=== PATIENT | male | born 1985 | race Caucasian/White ===

== ENCOUNTER 2019-12-31 03:29 | Emergency (ER) | payer OTHER, SELFPAY ==
[2019-12-31] VITALS (7 sets, daily range): BP systolic 104–113; BP diastolic 70–78; PULSE 68–89; RESP 14–18; TEMP 36.9–37.3; O2SAT 98–99; BMI 22.1
[2019-12-31 04:26] LABS: Eosinophils Absolute Auto 0.1 X10*3/uL (0.0-0.4); Eosinophils Percent Auto 0.6 % (0-4); Mean Corpuscular Volume 65.4 fL (80-98); Monocytes Absolute Auto 0.9 X10*3/uL (0.1-1.2); SCAN SMEAR FLAG 1; WBC ABN SCTR 1
[2019-12-31 04:28] LABS: Basophils Absolute Auto 0.1 X10*3/uL (0.0-0.2); Basophils Percent Auto 0.7 % (0-2); Hematocrit 38.2 % (42-52); Hemoglobin 11.1 g/dl (14.0-18.0); Imm Gran Abs Auto 0.02 X10*3/uL (0.00-0.03); Imm Gran Pct Auto 0.2 % (0.0-0.4); Lymphocytes Absolute Auto 1.8 X10*3/uL (1.2-4.9); Lymphocytes Percent Auto 22.1 % (20-40); Mean Corpuscular HGB Conc 29.1 g/dl (31.0-36.0); Monocytes Percent Auto 10.3 % (2-11); Neutrophils Absolute Auto 5.5 X10*3/uL (2.0-8.3); Neutrophils Percent Auto 66.1 % (45-73); Platelet Count 328 X10*3/uL (160-400); Red Blood Count 5.84 X10*6/uL (4.60-5.80); Red Cell Distribution Width 19.8 % (11.0-16.0)
[2019-12-31 04:39] LABS: Amphetamine Screen Urine Not Detected (Not Detect); Barbiturates, Urine Not Detected (Not Detect); Benzodiazepines Screen Urine Not Detected (Not Detect); Cannabinoid Screen Urine POSITIVE (Not Detect); Opiate Screen Urine Not Detected (Not Detect); Phencyclidine Screen Urine Not Detected (Not Detect)
[2019-12-31 04:43] LABS: Ethanol < 10 mg/dL
[2019-12-31 04:44] LABS: MANUAL DIFF FLAG NO; PLT ABN DIST 1; WBC ABN SCTR FOR CBC 1; White Blood Count 8.3 X10*3/uL (4.8-10.8)
[2019-12-31 04:48] LABS: Alanine Aminotransferase 64 U/L (0-40); Albumin Level 5.6 g/dL (3.5-5.0); Alkaline Phosphatase 150 U/L (39-117); Anion Gap 17 (12-20); Aspartate Amino Transferase 38 U/L (5-37); Bilirubin Total 0.6 mg/dL (0.0-1.0); Blood Urea Nitrogen 23 mg/dL (9-16); Calcium 10.6 mg/dL (8.4-10.2); Carbon Dioxide 27 mmol/L (22-29); Chloride 99 mmol/L (96-108); Cocaine Screen Urine POSITIVE (Not Detect); Creatinine Clr Calc Pharmacy 94.4; Estimated Glomerular Filt Rate > 60; Glucose Random 87 mg/dL (60-115); Potassium 4.5 mmol/l (3.3-5.1); Sodium 138 mmol/L (135-145); Total Protein 9.6 g/dL (6.5-8.0)
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
--- NOTE | 2019-12-31 04:54 | PC.NURSE ---
patient is medically cleared at this time. fax to [facility]. plan to move to pod when room is available
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
[2019-12-31 05:06] LABS: Glucose Urine UA NEG (NEG); Leukocyte Esterase Urine NEG (NEG); Nitrite Urine NEG (NEG); PH 6.5 (5.0-8.0); Urine Blood TRACE (NEG); Urine Ketones 15 MG/DL (NEG); Urine Protein NEG (NEG-TRACE)
[2019-12-31 05:09] LABS: Appearance Urine CLEAR; Color Urine AMBER
[2019-12-31 05:20] LABS: Mucus Urine 1+ /LPF; RBC Urine 0-2 /HPF (0); Squamous Epithelial Cell Urine 1+ /LPF; WBC Urine 0-2 /HPF (0-4)
--- NOTE | 2019-12-31 05:40 | PC.NURSE ---
report given to karie in pod. no questions.
--- NOTE | 2019-12-31 11:10 | PC.NURSE ---
SEEN BY Estiven, AWAITING DISPO
--- NOTE | 2019-12-31 14:05 | PC.NURSE ---
AFTER SPEAKING WITH [facility] PLAN FOR RESPITE HOWEVER PT NOW STATES HE WANTS TO GO HOME, [facility] AWARE AND AT BEDSIDE AT THIS TIME
== END 2019-12-31 15:00 | disposition home or self-care (01) ==
PROVIDERS: Emergency Provider Student in an Organized Health Care Education/Training Program
DX: F33.1 Major depressive disorder, recurrent, moderate (principal); R45.851 Suicidal ideations; C16.9 Malignant neoplasm of stomach, unspecified; C78.7 Secondary malignant neoplasm of liver and intrahepatic bile duct; F14.90 Cocaine use, unspecified, uncomplicated; F17.200 Nicotine dependence, unspecified, uncomplicated; Z71.6 Tobacco abuse counseling
CPT/HCPCS: 36415; 80053; 80307; 80320; 81001; 85025; 99285

== ENCOUNTER 2020-05-29 14:27 | Outpatient (REF) | payer OTHER, SELFPAY | END 2020-05-29 14:28 | disposition home or self-care (01) | LOC: HO.LAB 14:27 | PROVIDERS: Visit Provider Internal Medicine | DX: Z20.822 Contact with and (suspected) exposure to COVID-19 (principal) | CPT/HCPCS: 36415; C9803; U0003; U0005 ==

== ENCOUNTER 2021-06-03 11:50 | Emergency (ER) | payer MEDICAID, SELFPAY ==
--- NOTE | ~2021-06-03 | CT_ITS ---
EXAMINATION: CT ABDOMEN AND PELVIS WITH CONTRAST CLINICAL INFORMATION: Abdominal pain. History of cancer of the liver COMPARISON: Previous CTA of the abdomen and pelvis May 2019 TECHNIQUE: Multidetector volumetric images were obtained from the superior aspect of the liver through the pubic symphysis following administration 85 mL of Omnipaque 350 intravenous contrast. Sagittal and coronal reformatted images were obtained on the technologist's workstation. Oral contrast: Yes This CT examination was performed using dose optimization techniques as appropriate, variously including the following: *Automated exposure control *Adjustment of mA and/or kV according to patient size (this includes techniques or standardized protocols for targeted exams where dose is matched to indication/reason for exam; i.e. extremities or head) *Use of iterative reconstruction technique DLP: 608 mGy-cm FINDINGS: LUNG BASES: The visualized lung bases are unremarkable. LIVER, GALLBLADDER, AND BILIARY TREE: The liver is enlarged. There are multiple liver lesions seen throughout both lobes of the liver. Some lesions appear low in attenuation. Several heterogeneous on both high and low attenuation. Largest lesion measures 5 cm in the lateral segment of the left lobe of the liver and 6 cm in the posterior segment of the right lobe of the liver. The gallbladder is normal. There is no biliary duct dilatation. The hepatic veins and portal veins are patent. There is no ascites. PANCREAS: Unremarkable. SPLEEN: The spleen is slightly enlarged measuring 14 cm in length. ADRENAL GLANDS: Unremarkable. KIDNEYS AND URETERS: The kidneys are normal in size, shape, and attenuation. No hydronephrosis, hydroureter, or calculi seen. There is a low-attenuation lesion in the upper pole right kidney probably representing a cyst. Kidneys are otherwise unremarkable. BLADDER: Unremarkable. GASTROINTESTINAL TRACT: There is wall thickening of the distal colon questionable for mild colitis. The small and large bowel are otherwise unremarkable. The appendix is unremarkable. The greater curvature of the stomach is abnormal appearing with focal area of wall thickening and question ulcerative mass. This area measures approximately 4 cm. There are small adjacent perigastric lymph nodes. ABDOMINAL WALL: No significant hernia is appreciated. LYMPH NODES: There are enlarged periportal lymph nodes. These appear low in attenuation questionable for necrosis. Largest lymph node measures 3.5 x 4.5 cm. VASCULAR: Unremarkable. PELVIC VISCERA: Unremarkable. OSSEOUS STRUCTURES: There is a 5 mm sclerotic lesion in the left femoral intertrochanteric region. This is similar to May 2019 CT scan and may represent a bone island. CT/CT abdomen pelvis w con IMPRESSION: Enlarged liver and innumerable liver lesions compatible with patient's history of liver cancer. No biliary duct dilatation. Enlarged periportal lymph nodes, some of which may be necrotic. Abnormal stomach with focal wall thickening and question ulcerated mass involving the greater curvature of the stomach and small adjacent perigastric lymph nodes. Enlarged spleen. No ascites. Mild wall thickening of the distal colon questionable for colitis. Fleischner guidelines were followed.
[2021-06-03 11:56] VITALS: BP 133/85; PULSE 113; RESP 18; TEMP 36.5; O2SAT 99; BMI 25.8
--- NOTE | 2021-06-03 12:22 | ED_ITS ---
HPI - Abdominal Pain General Chief Complaint: Abdominal Pain Stated Complaint: sharp abd pain Time Seen by Provider: 06/03/21 12:07 Source: patient Mode of arrival: ambulatory Limitations: no limitations History of Present Illness HPI narrative: 35-year-old male with history of stomach and liver cancer presents to emergency department 3 weeks after getting out of shelter. He states he was still getting treatment at [facility] for his liver and stomach cancer. Since he has been out he is not taking his cancer medications he has not talked to his cancer doctor main appointment. He states that yesterday called and told that he had abdominal pain. Patient has chronic abdominal pain all over his abdomen he states is worse with eating. He states he has had to have fluid drained from his belly 1 time in the past. Patient is a very poor historian and obviously concerning that he is not taking care of himself with his cancer. Recently out of shelter. Patient takes oxycodone every 6 hours and is continue taking that as well as he states his psych medications. MD elicited complaint: abdominal pain Related Data Home Medications Medication Instructions Recorded Confirmed acetaminophen 325 mg tablet 2 tab PO QID PRN 06/03/21 06/03/21 amlodipine 10 mg tablet 1 tab PO DAILY 06/03/21 06/03/21 hydroxyzine HCl 25 mg tablet 25 mg PO BID@0900,1200 06/03/21 06/03/21 hydroxyzine HCl 25 mg tablet 50 mg PO BEDTIME 06/03/21 06/03/21 omeprazole 40 mg capsule,delayed 1 cap PO DAILY@0630 06/03/21 06/03/21 release oxycodone 15 mg tablet 1 tab PO Q6H PRN 06/03/21 06/03/21 sennosides 8.6 mg-docusate sodium 2 tab PO BEDTIME PRN 06/03/21 06/03/21 50 mg tablet (Senexon-S) sertraline 50 mg tablet 1 tab PO DAILY 06/03/21 06/03/21 sunitinib 37.5 mg capsule 37.5 mg PO DAILY 06/03/21 trazodone 100 mg tablet 2 tab PO BEDTIME 06/03/21 06/03/21 Allergies Allergy/AdvReac Type Severity Reaction Status Date / Time No Known Allergies Allergy Unverified 12/13/19 15:46 [No Known Allergies*] Review of Systems Review of Systems Review of systems: General: Patient denies any fever chills recent illness or falls Musculoskeletal: Denies back pain or body aches or other injuries HEENT: denies headache, runny nose, ear pain Respiratory: denies shortness of breath, cough Cardiovascular: no chest pain or palpitations : denies dysuria, frequency Abdomen: no nausea vomiting generalized abdominal pain Extremities: no swelling, no pain Skin: no diaphoresis Yes all other systems are reviewed and are negative PMFSH Past Medical History Medical History Cancer of stomach Liver cancer Social History Social History Alcohol intake: never Patient Tobacco Use Status: Current everyday Tobacco user Smoked in Last 30 Days: Yes Use of substances other than those prescribed or required for medical reasons: Yes Substance Use Type: Marijuana Advance Directives: No Advance Directives Information Provided: No Physical Exam ED Vital Signs: Vital Signs - 24 hr 06/03/21 11:56 06/03/21 12:34 06/03/21 14:35 Temperature 97.7 F 98.2 F 98.1 F Pulse Rate 113 H 90 84 Respiratory Rate 18 17 13 Blood Pressure 133/85 109/74 94/62 Pulse Oximetry 99 97 95 06/03/21 14:38 Temperature 98.1 F Pulse Rate 78 Respiratory Rate 17 Blood Pressure 94/62 Pulse Oximetry BMI result Body Mass Index 25.8 General: Well-appearing well-nourished in no signs of distress HEENT: Normocephalic atraumatic Neck: No signs of JVD, no masses no tenderness or lymphadenopathy Cardiovascular: Regular rate and rhythm Respiratory: Clear to auscultation bilaterally Abdomen: Soft tender all over the abdomen with intermittent guarding no masses appears to have worse pain in the right upper quadrant. Extremities: Normal pedal pulses no signs of edema Skin: Dry warm no rashes Back: No tenderness full ROM Procedures Procedure Narrative Procedure Narrative: Bedside ultrasound performed to see if there is any ascites patient tolerated the procedure well was not tender in the right lower left upper and left lower quadrant but would flex his belly when I would try to scan his right upper quadrant I was unable to visualize his liver or gallbladder. MDM - Abdominal Pain MDM Narrative Medical decision making narrative: 35-year-old unfortunate male with liver and stomach cancer being treated at [facility]. Patient comes here for acute on chronic abdominal pain for which she takes oxycodone he states is worse with eating he denies any new or different pain than his normal. Bedside ultrasound did not show any ascites I do not use patient is having SBP on the patient for CT scan to rule out any acute intra- abdominal process this is likely a chronic nature and related to his cancer for which he is getting treatment I will give patient fluids morphine and droperidol since patient is on oxycodone I think the droperidol help mitigate his pain. I will check labs as well. 1507 CT shows multiple lesions within liver and stomach there was 1 ulcerative lesion within the stomach does not appear to be any sense perforation labs are unremarkable patient looks well heart rate has normalized I will discharge the patient home with heme Onc follow-up. We did find the patient's medications which he can mixing picker tender on his way home. Lab Data Result diagrams: 06/03/21 12:50 06/03/21 12:50 Labs: Lab Results 06/03/21 06/03/21 06/03/21 Range/Units 12:50 12:50 12:50 WBC 4.1 L (4.8-10.8) X10*3/uL RBC 4.24 L (4.60-5.80) X10*6/uL Hgb 9.9 L (14.0-18.0) g/dl Hct 32.6 L (42.0-52.0) % MCV 76.9 L (80.0-98.0) fL MCH 23.3 L (27.0-33.0) pg MCHC 30.4 L (31.0-36.0) g/dl RDW 21.4 H (11.0-16.0) % Plt Count 198 (160-400) X10*3/uL MPV 10.7 (9.4-12.4) fL Immature Gran % (Auto) 0.2 (0.0-0.4) % Neut % (Auto) 42.3 L (45-73) % Lymph % (Auto) 42.8 H (20-40) % [place] % (Auto) 13.0 H (2-11) % Eos % (Auto) 1.2 (0-4) % Baso % (Auto) 0.5 (0-2) % Lymph # (Auto) 1.7 (1.2-4.9) X10*3/uL [place] # (Auto) 0.5 (0.1-1.2) X10*3/uL Eos # (Auto) 0.1 (0.0-0.4) X10*3/uL Baso # (Auto) 0.0 (0.0-0.2) X10*3/uL Abs Immat Gran (auto) 0.01 (0.00-0.03) X10*3/uL Absolute Neuts (auto) 1.7 L (2.0-8.3) x10*3/uL Absolute Nucleated RBC 0.000 (0.0-0.012) X10*3/uL Nucleated RBC % (auto) 0.0 (0.0-0.2) /100WBC Sodium 136 (135-145) mmol/L Potassium 4.3 (3.3-5.1) mmol/L Chloride 102 (96-108) mmol/L Carbon Dioxide 24 (22-29) mmol/L Anion Gap 14 (12-20) BUN 15 (9-16) mg/dL Creatinine 0.66 (0.5-1.4) mg/dL Estim Creat Clear Calc 159.1 Estimated GFR > 60 Random Glucose 69 (60-115) mg/dL Calcium 9.7 D (8.4-10.2) mg/dL Total Bilirubin 0.7 (0.0-1.0) mg/dL Direct Bilirubin 0.3 (0.0-0.5) mg/dL AST 38 H (5-37) U/L ALT 49 H (0-40) U/L Alkaline Phosphatase 308 H D (39-117) U/L Total Protein 7.7 (6.5-8.0) g/dL Albumin 4.1 D (3.5-5.0) g/dL Lipase 102 H (8-78) U/L Urine Color Urine Appearance Urine pH (5.0-8.0) Ur Specific [place] (1.005-1.025) Urine Protein (NEG-TRACE) MG/DL Urine Glucose (UA) (NEG) MG/DL Urine Ketones (NEG) MG/DL Urine Blood (NEG) Urine Nitrite (NEG) Ur Leukocyte Esterase (NEG) Urine RBC (0) /HPF Urine WBC (0-4) /HPF Ur Squamous Epith Cells /LPF Urine Bacteria /LPF Urine Opiates Screen (Not Detect) Urine Fentanyl Screen (Not Detect) Ur Barbiturates Screen (Not Detect) Ur Phencyclidine Scrn (Not Detect) Ur Amphetamines Screen (Not Detect) U Benzodiazepines Scrn (Not Detect) Urine Cocaine Screen (Not Detect) U Marijuana (THC) Screen (Not Detect) Ethyl Alcohol < 10 mg/dL 06/03/21 06/03/21 Range/Units 14:30 14:30 WBC (4.8-10.8) X10*3/uL RBC (4.60-5.80) X10*6/uL Hgb (14.0-18.0) g/dl Hct (42.0-52.0) % MCV (80.0-98.0) fL MCH (27.0-33.0) pg MCHC (31.0-36.0) g/dl RDW (11.0-16.0) % Plt Count (160-400) X10*3/uL MPV (9.4-12.4) fL Immature Gran % (Auto) (0.0-0.4) % Neut % (Auto) (45-73) % Lymph % (Auto) (20-40) % [place] % (Auto) (2-11) % Eos % (Auto) (0-4) % Baso % (Auto) (0-2) % Lymph # (Auto) (1.2-4.9) X10*3/uL [place] # (Auto) (0.1-1.2) X10*3/uL Eos # (Auto) (0.0-0.4) X10*3/uL Baso # (Auto) (0.0-0.2) X10*3/uL Abs Immat Gran (auto) (0.00-0.03) X10*3/uL Absolute Neuts (auto) (2.0-8.3) x10*3/uL Absolute Nucleated RBC (0.0-0.012) X10*3/uL Nucleated RBC % (auto) (0.0-0.2) /100WBC Sodium (135-145) mmol/L Potassium (3.3-5.1) mmol/L Chloride (96-108) mmol/L Carbon Dioxide (22-29) mmol/L Anion Gap (12-20) BUN (9-16) mg/dL Creatinine (0.5-1.4) mg/dL Estim Creat Clear Calc Estimated GFR Random Glucose (60-115) mg/dL Calcium (8.4-10.2) mg/dL Total Bilirubin (0.0-1.0) mg/dL Direct Bilirubin (0.0-0.5) mg/dL AST (5-37) U/L ALT (0-40) U/L Alkaline Phosphatase (39-117) U/L Total Protein (6.5-8.0) g/dL Albumin (3.5-5.0) g/dL Lipase (8-78) U/L Urine Color YELLOW Urine Appearance CLEAR Urine pH 5.5 (5.0-8.0) Ur Specific [place] 1.020 (1.005-1.025) Urine Protein 1+ H (NEG-TRACE) MG/DL Urine Glucose (UA) NEG (NEG) MG/DL Urine Ketones NEG (NEG) MG/DL Urine Blood NEG (NEG) Urine Nitrite NEG (NEG) Ur Leukocyte Esterase NEG (NEG) Urine RBC 0-2 (0) /HPF Urine WBC 0-2 (0-4) /HPF Ur Squamous Epith Cells NONE /LPF Urine Bacteria NONE /LPF Urine Opiates Screen POSITIVE H (Not Detect) Urine Fentanyl Screen Not Detected (Not Detect) Ur Barbiturates Screen Not Detected (Not Detect) Ur Phencyclidine Scrn Not Detected (Not Detect) Ur Amphetamines Screen Not Detected (Not Detect) U Benzodiazepines Scrn Not Detected (Not Detect) Urine Cocaine Screen Not Detected (Not Detect) U Marijuana (THC) Screen POSITIVE H (Not Detect) Ethyl Alcohol mg/dL Discharge Plan Discharge Clinical Impression: Gastric cancer, Cancer of liver Patient Disposition: Home, Self-Care Instructions: Liver Cancer (DC), Stomach Cancer (DC) Additional Instructions: Please call follow-up your doctor if you have any other concerns please not hesitate to come back to the emergency department. Prescriptions: No Action acetaminophen 325 mg tablet 2 tab PO QID PRN (Reason: pain) 0RF sennosides-docusate sodium [Senexon-S] 8.6-50 mg tablet 2 tab PO BEDTIME PRN (Reason: constipation) 0RF omeprazole 40 mg capsule,delayed release(DR/EC) 1 cap PO DAILY@0630 0RF oxycodone 15 mg tablet 1 tab PO Q6H PRN (Reason: pain) 0RF trazodone 100 mg tablet 2 tab PO BEDTIME 0RF amlodipine 10 mg tablet 1 tab PO DAILY 0RF hydroxyzine HCl 25 mg tablet 25 mg PO BID@0900,1200 0RF hydroxyzine HCl 25 mg tablet 50 mg PO BEDTIME 0RF sertraline 50 mg tablet 1 tab PO DAILY 0RF sunitinib 37.5 mg capsule 37.5 mg PO DAILY 0RF
[2021-06-03 12:34] VITALS: BP 109/74; PULSE 90; RESP 17; TEMP 36.8; O2SAT 97
[2021-06-03 12:54] LABS: MANUAL DIFF FLAG NO
[2021-06-03 12:56] LABS: Basophils Percent Auto 0.5 % (0-2); Eosinophils Absolute Auto 0.1 X10*3/uL (0.0-0.4); Eosinophils Percent Auto 1.2 % (0-4); Hematocrit 32.6 % (42.0-52.0); Hemoglobin 9.9 g/dl (14.0-18.0); Imm Gran Abs Auto 0.01 X10*3/uL (0.00-0.03); Imm Gran Pct Auto 0.2 % (0.0-0.4); Lymphocytes Absolute Auto 1.7 X10*3/uL (1.2-4.9); Lymphocytes Percent Auto 42.8 % (20-40); Mean Corpuscular HGB Conc 30.4 g/dl (31.0-36.0); Mean Corpuscular Hemoglobin 23.3 pg (27.0-33.0); Mean Corpuscular Volume 76.9 fL (80.0-98.0); Mean Platelet Volume 10.7 fL (9.4-12.4); Monocytes Absolute Auto 0.5 X10*3/uL (0.1-1.2); Neutrophils Absolute Auto 1.7 x10*3/uL (2.0-8.3); Neutrophils Percent Auto 42.3 % (45-73); Platelet Count 198 X10*3/uL (160-400); Red Blood Count 4.24 X10*6/uL (4.60-5.80); Red Cell Distribution Width 21.4 % (11.0-16.0); White Blood Count 4.1 X10*3/uL (4.8-10.8)
[2021-06-03] MEDS: 0.9 % Sodium Chloride 1,000 ML 999 ML IV (12:59)
[2021-06-03] MEDS: Morphine Sulfate 4 MG/ML CARTRIDGE IVPUSH (13:01)
[2021-06-03 13:12] LABS: Alanine Aminotransferase 49 U/L (0-40); Albumin Level 4.1 g/dL (3.5-5.0); Alkaline Phosphatase 308 U/L (39-117); Anion Gap 14 (12-20); Aspartate Amino Transferase 38 U/L (5-37); Bilirubin Direct 0.3 mg/dL (0.0-0.5); Bilirubin Total 0.7 mg/dL (0.0-1.0); Blood Urea Nitrogen 15 mg/dL (9-16); Calcium 9.7 mg/dL (8.4-10.2); Carbon Dioxide 24 mmol/L (22-29); Chloride 102 mmol/L (96-108); Creatinine Clr Calc Pharmacy 159.1; Estimated Glomerular Filt Rate > 60; Glucose Random 69 mg/dL (60-115); Lipase 102 U/L (8-78); Potassium 4.3 mmol/L (3.3-5.1); Sodium 136 mmol/L (135-145); Total Protein 7.7 g/dL (6.5-8.0)
--- NOTE | 2021-06-03 13:25 | PHA.MEDREC ---
Pharmacy Consult ? Medication Reconciliation Pharmacy has completed the medication reconciliation. Patient has no been able to get his Sutinib because he was not sure where it was shipped to. Confirmed with [facility] pharmacy that [facility] drop off the package at [facility] [address] [facility] in [place]. Patient reports taking clonidine at night, but it has not been picked up from his pharmacy for 2 years. There is a script on hold at [facility] for Clonidine 0.1 mg BID last filled in 2019. Marlee Liz, DiegoD
[2021-06-03] MEDS: iohexoL 350 MG/ML 100 ML INFUS..BTL IV (14:00)
[2021-06-03 14:15] LABS: Ethanol < 10 mg/dL
[2021-06-03 14:35] VITALS: BP 94/62; PULSE 84; RESP 13; TEMP 36.7; O2SAT 95
[2021-06-03 14:36] LABS: Appearance Urine CLEAR; Color Urine YELLOW; Glucose Urine UA NEG (NEG); Leukocyte Esterase Urine NEG (NEG); Nitrite Urine NEG (NEG); PH 5.5 (5.0-8.0); UACC Culture Trigger NO; Urine Blood NEG (NEG); Urine Ketones NEG (NEG); Urine Protein 1+ MG/DL (NEG-TRACE)
[2021-06-03 14:38] VITALS: BP 94/62; PULSE 78; RESP 17; TEMP 36.7
[2021-06-03 14:43] LABS: WBC Urine 0-2 /HPF (0-4)
[2021-06-03 14:44] LABS: RBC Urine 0-2 /HPF (0)
[2021-06-03 14:54] LABS: Amphetamine Screen Urine Not Detected (Not Detect); Barbiturates, Urine Not Detected (Not Detect); Benzodiazepines Screen Urine Not Detected (Not Detect); Cannabinoid Screen Urine POSITIVE (Not Detect); Cocaine Screen Urine Not Detected (Not Detect); Fentanyl, urine Not Detected (Not Detect); Opiate Screen Urine POSITIVE (Not Detect); Phencyclidine Screen Urine Not Detected (Not Detect)
== END 2021-06-03 15:28 | disposition home or self-care (01) ==
PROVIDERS: Emergency Provider Student in an Organized Health Care Education/Training Program
DX: C16.9 Malignant neoplasm of stomach, unspecified (principal); C78.7 Secondary malignant neoplasm of liver and intrahepatic bile duct; Z79.899 Other long term (current) drug therapy; F17.200 Nicotine dependence, unspecified, uncomplicated; Z71.6 Tobacco abuse counseling
CPT/HCPCS: 36415; 74177; 80048; 80076; 80307; 81001; 82077; 83690; 85025; 96361; 96374; 96375; 99284; J1790; J2270; Q9967

== ENCOUNTER 2022-10-06 11:07 | Emergency (ER) | payer MEDICAID, SELFPAY ==
--- NOTE | ~2022-10-06 | CT_ITS ---
EXAMINATION: CT ABDOMEN AND PELVIS WITH CONTRAST CLINICAL INFORMATION: Left upper quadrant tenderness. COMPARISON: 06/03/2021 TECHNIQUE: Multidetector volumetric images were obtained from the superior aspect of the liver through the pubic symphysis following administration 85 mL of Omnipaque 350 intravenous contrast. Sagittal and coronal reformatted images were obtained on the technologist's workstation. Oral contrast: No This CT examination was performed using dose optimization techniques as appropriate, variously including the following: *Automated exposure control *Adjustment of mA and/or kV according to patient size (this includes techniques or standardized protocols for targeted exams where dose is matched to indication/reason for exam; i.e. extremities or head) *Use of iterative reconstruction technique DLP: 465 mGy-cm FINDINGS: LUNG BASES: Atelectasis versus scarring in the lower lobes. LIVER, GALLBLADDER, AND BILIARY TREE: The liver is enlarged and measures 34.8 cm in sagittal dimension. The hepatic parenchyma is replaced with innumerable ill-defined hypodensities of varying size and complexity. These masses have progressed in both size and number compared to the prior study. A lesion in the caudate lobe measures 6.8 x 7.8 cm. Many of the lesions exhibit necrotic features. Hemorrhagic component cannot be excluded No biliary ductal dilatation. Hepatic and portal veins are attenuated and splayed by the masses however remain grossly patent. Gallbladder wall thickening. PANCREAS: No ductal dilatation. SPLEEN: Enlarged. Measures 16.2 cm in sagittal dimension. ADRENAL GLANDS: No adrenal mass. KIDNEYS AND URETERS: The kidneys are symmetric in size and enhancement. Upper pole right renal cyst. Indeterminate left peripelvic hypodensity. No hydronephrosis or hydroureter. BLADDER: Unremarkable. GASTROINTESTINAL TRACT: Irregular soft tissue mass centered at the gastric body measuring 4.1 x 4.7 x 4.8 cm with intraluminal and extraluminal components. There is an adjacent left upper quadrant mass measuring 2.3 x 1.7 cm on image 48 of series 3. No small bowel obstruction. ABDOMINAL WALL: No significant hernia is appreciated. LYMPH NODES: There is extensive conglomerate periportal lymphadenopathy. The largest lymph node mass measures 4.5 x 5.0 cm. VASCULAR: No abdominal aortic aneurysm. PELVIC VISCERA: The prostate gland and seminal vesicles are within normal limits. Small ascites in the abdomen and pelvis. OSSEOUS STRUCTURES: No destructive bone lesions. CT/CT abdomen pelvis w IV con IMPRESSION: Irregular soft tissue mass centered at the gastric body with both intraluminal and extraluminal components measuring 4.1 x 4.7 x 4.8 cm. Diagnostic considerations include gastrointestinal stromal tumor and gastric carcinoma. Extensive hepatic metastatic disease and hepatic enlargement progressed from prior study with marked progressive periportal lymphadenopathy. Many of the hepatic lesions demonstrate central necrosis. Hemorrhagic component cannot be excluded. Splenomegaly. Small ascites. Findings were reviewed and discussed with LOUISA Olivares at 2:08 PM on 10/06/2022.
--- NOTE | 2022-10-06 11:17 | ED.GENADULT ---
HPI - General Adult General Chief complaint: Abdominal Pain Stated complaint: runny nose, lower abd pain Time Seen by Provider: 10/06/22 12:15 Source: patient and old records reviewed Mode of arrival: ambulatory Limitations: no limitations History of Present Illness HPI narrative: 36-year-old male with history of metastatic GIST with extensive hepatic involvement, dx 2019, history of spontaneous subcapsular hematoma s/p embolization of the left hepatic artery in the past, chronic pain on chronic opiates, history of medication noncompliance, cocaine use and ETOH abuse, history of anemia requiring multiple transfusions, schizophrenia, bipolar disorder, who presents to the ER for evaluation of 3 weeks of worsening left upper quadrant pain. He states the pain has been worse with movement and coughing. He has had significant decrease in appetite and not able to eat because of the pain. He is having normal BMs. He is nauseated but not vomiting. He reports chills, runny nose and sore throat as well. He states he has gone to [facility] ER twice for the pain recently but ended up leaving due to long wait times. He is being treated at [facility] for his malignancies. He is s/p radiation and chemotherapy. He was started on a new oral weekly chemotherapy agent by his Oncologist yesterday. MD complaint: abdominal pain Onset (ago): week(s) Location: abdomen Radiation: non-radiation Severity: severe Severity scale (1-10): 10 Quality: stabbing Pain Consistency: constant Relieving factors: none Exacerbating factors: eating and movement Associated symptoms: cough, loss of appetite, malaise, nausea/vomiting, weakness and other (runny nose, sore throat) Treatments prior to arrival: none Related Data Home Medications Medication Instructions Recorded Confirmed acetaminophen 325 mg tablet 2 tab PO QID PRN pain 06/03/21 06/03/21 amlodipine 10 mg tablet 1 tab PO DAILY 06/03/21 06/03/21 hydroxyzine HCl 25 mg tablet 25 mg PO BID@0900,1200 06/03/21 06/03/21 hydroxyzine HCl 25 mg tablet 50 mg PO BEDTIME 06/03/21 06/03/21 omeprazole 40 mg capsule,delayed 1 cap PO DAILY@0630 06/03/21 06/03/21 release oxycodone 15 mg tablet 1 tab PO Q6H PRN pain 06/03/21 06/03/21 sennosides 8.6 mg-docusate sodium 2 tab PO BEDTIME PRN constipation 06/03/21 06/03/21 50 mg tablet (Senexon-S) sertraline 50 mg tablet 1 tab PO DAILY 06/03/21 06/03/21 sunitinib malate 37.5 mg capsule 37.5 mg PO DAILY 06/03/21 trazodone 100 mg tablet 2 tab PO BEDTIME 06/03/21 06/03/21 Allergies Allergy/AdvReac Type Severity Reaction Status Date / Time No Known Allergies Allergy Unverified 10/06/22 11:19 [No Known Allergies*] Review of Systems Review of Systems: Yes all other systems are reviewed and are negative [facility] Past Medical History Medical History Cancer of stomach Liver cancer Social History Social History Alcohol intake: never Patient Tobacco Use Status: Current everyday Tobacco user Substance Use Type: Marijuana Advance Directives: No Physical Exam ED Vital Signs: Vital Signs - 24 hr 10/06/22 11:20 10/06/22 13:24 10/06/22 14:53 Temperature 98.2 F 98.2 F 99.2 F Pulse Rate 113 H 100 100 Respiratory Rate 20 16 20 Blood Pressure 148/99 H 121/86 126/86 Pulse Oximetry 96 96 94 Oxygen Delivery Method Room Air Room Air 10/06/22 15:01 Temperature Pulse Rate Respiratory Rate 19 Blood Pressure Pulse Oximetry Oxygen Delivery Method BMI result Body Mass Index 22.1 Appearance: Alert. Oriented X3. appears uncomfortable, malnourished appearing Head: normocephalic, atraumatic. Eyes: Pupils equal, round and reactive to light. mild scleral icterus ENT: Pharynx normal. No tonsillar swelling or exudate. Neck: Normal inspection. Neck supple. CVS: Normal heart rate and rhythm. Pulses normal. Respiratory: No respiratory distress. Breath sounds normal. Abdomen: Round, rigid, diffusely tender to the left side of the abdomen with guarding and rebound tenderness, active +BS x4 Skin: Skin warm and dry. Normal skin color. Normal skin turgor. No rashes. Extremities: No lower extremity edema. No joint swelling. Neuro/psych: Oriented X 3. No motor deficit. No sensory deficit. CN II-XII intact. Normal speech and cognition. Course Course Course Narrative: This is an RME: Additional HPI, ROS, PE not included below will be deferred to primary provider. Patient is a 36-year-old male with history of stomach and liver cancer presenting to the emergency department with abdominal pain, on left side of abdomen, worse with cough for 3 weeks. Also complains of headache, nasal congestion, sore throat. Currently receiving cancer treatment through [facility]. States he started a new oral chemo yesterday. Reevaluation(s) Reevaluation #1: Case discussed with radiologist. Significant increase in his metastatic liver lesions with fluid component, consistent with necrosis, possible hemorrhagic although no extravasation was seen. H&H is stable. BP is stable. Call put out to the patient's oncologist at [facility] for recommendations. Time: 14:25 Reevaluation #2: Spoke with patient's Oncologist Dr. Higuera. recommending pain control and close monitoring. Per Dr. Higuera he is not appropriate for hospice. patient is a full code and would like everything done. Spoke with hospitalist about admission to the hospital here. she came and evaluated the patient at the bedside. reviewed CT images with her. concern for lack of IR and surgical capabilities at this facility if he were to perforate or decompensate. Dr. Sharif (ED MD) also evaluated the patient at the bedside and agrees to transfer the patient to tertiary center for more resources. [facility] closed to transfers at this time. [facility] accepts Time: 14:36 Medications Administered Discontinued Medications Generic Name Dose Route Start Last Admin Trade Name Freq PRN Reason Stop Dose Admin Hydromorphone HCl 1 mg 10/06/22 12:29 10/06/22 12:43 Hydromorphone Hcl 1 Mg/Ml Syringe IVPUSH 10/06/22 12:30 1 mg ONCE ONE Administration Protocol Hydromorphone HCl 1 mg 10/06/22 14:25 10/06/22 15:01 Hydromorphone Hcl 1 Mg/Ml Syringe IVPUSH 10/06/22 14:26 1 mg ONCE ONE Administration Protocol Sodium Chloride 1,000 mls @ 999 mls/hr 10/06/22 12:30 10/06/22 14:43 Ns IV 10/06/22 13:30 Infused .Q1H1M NARDA Infusion Piperacillin Sod/Tazobactam 50 mls @ 100 mls/hr 10/06/22 12:43 10/06/22 14:43 Sod 3.375 gm/ Sodium Chloride IV 10/06/22 13:12 Infused ONCE ONE Infusion Iohexol 85 ml 10/06/22 13:05 10/06/22 13:05 Iohexol 350 Mg/Ml 100 Ml Infus..Btl IV 10/06/22 13:06 85 ml ONCE ONE Administration Medical Decision Making Medical Decision Making MDM Narrative: 36 yo male with history of gastric and liver cancers s/p chemo and radiation who presents to the ER with left sided abdominal pain for the last 3 weeks. On exam he is tachycardic, appears very uncomfortable. His abdomen is rigid. Concern for perforation. He has history of CT scan showing an ulcerating mass 1 year ago. Tachycardic on arrival due to pain. No fevers. CT scan of his abdomen was performed showing extensive hepatic metastatic disease and hepatomegaly, w/ central necrosis but cannot rule out hemorrhagic component. spoke with radiologist as well as patient's oncologist. he is hemodynamically stable however remains in significant pain. abdomen remains rigid. unable to move or breath comfortably. patient evaluated by ED attending and hospitalist the bedside - given his exam, age, goals of care and concern for clincical decompensation it would be best for the patient to be transferred to a higher level of care to have access to emergent surigical and IR specialists. patient and family updated on plan of care. accepted to [facility]. Differential Diagnosis Differential Diagnoses: The differential diagnosis associated with the presentation includes acute surgical abdomen, Worsening metastatic disease, perforated ulcer, hemorrhagic metastatic lesions, liver abscesses Admission/Observation Consideration of admission/observation: Escalation of care including admission/observation considered pain control, monitoring H/H and serial abd exams Consult Healthcare Provider Management of the patient was discussed with: Hospitalist and Manager [facility] Oncology at [facility] Lab Data [facility] Lab Attestation statement: I reviewed the patient's lab results. Stable anemia and leukopenia, acute on chronic transaminitis and hyperbilirubinemia 10/06/22 11:59 10/06/22 11:46 Labs: Lab Results 10/06/22 10/06/22 10/06/22 Range/Units 11:45 11:45 11:45 WBC (4.8-10.8) X10*3/uL RBC (4.60-5.80) X10*6/uL Hgb (14.0-18.0) g/dl Hct (42.0-52.0) % MCV (80.0-98.0) fL MCH (27.0-33.0) pg MCHC (31.0-36.0) g/dl RDW (11.0-16.0) % Plt Count (160-400) X10*3/uL MPV (9.4-12.4) fL Immature Gran % (Auto) (0.0-0.4) % Neut % (Auto) (45-73) % Lymph % (Auto) (20-40) % [place] % (Auto) (2-11) % Eos % (Auto) (0-4) % Baso % (Auto) (0-2) % Lymph # (Auto) (1.2-4.9) X10*3/uL [place] # (Auto) (0.1-1.2) X10*3/uL Eos # (Auto) (0.0-0.4) X10*3/uL Baso # (Auto) (0.0-0.2) X10*3/uL Abs Immat Gran (auto) (0.00-0.03) X10*3/uL Absolute Neuts (auto) (2.0-8.3) x10*3/uL Absolute Nucleated RBC (0.0-0.012) X10*3/uL Nucleated RBC % (auto) (0.0-0.2) /100WBC PT (10.0-13.1) SEC INR (0.9-1.1) Sodium (135-145) mmol/L Potassium (3.3-5.1) mmol/L Chloride (96-108) mmol/L Carbon Dioxide (22-29) mmol/L Anion Gap (12-20) BUN (9-16) mg/dL Creatinine (0.5-1.4) mg/dL Estim Creat Clear Calc Estimated GFR Random Glucose (60-115) mg/dL Lactic Acid 2.5 H* (0.5-2.0) mmol/L Lactic Acid F/U @ 2Hr (0.5-2.0) mmol/L Calcium (8.4-10.2) mg/dL Total Bilirubin (0.0-1.0) mg/dL AST (5-37) U/L ALT (0-40) U/L Alkaline Phosphatase (39-117) U/L Total Protein (6.5-8.0) g/dL Albumin (3.5-5.0) g/dL Influenza Type A (PCR) NEGATIVE (Negative) Influenza Type B (PCR) NEGATIVE (Negative) RSV RNA Qual (PCR) NEGATIVE (Negative) SARS-CoV-2 RNA (RT-PCR) NEGATIVE (Negative) S. pyogenes GrpA STEFAN Negative (Negative) 10/06/22 10/06/22 10/06/22 Range/Units 11:46 11:46 11:59 WBC 3.7 L (4.8-10.8) X10*3/uL RBC 3.98 L (4.60-5.80) X10*6/uL Hgb 10.8 L (14.0-18.0) g/dl Hct 34.6 L (42.0-52.0) % MCV 86.9 (80.0-98.0) fL MCH 27.1 (27.0-33.0) pg MCHC 31.2 (31.0-36.0) g/dl RDW 20.0 H (11.0-16.0) % Plt Count 180 (160-400) X10*3/uL MPV 11.0 (9.4-12.4) fL Immature Gran % (Auto) 0.3 (0.0-0.4) % Neut % (Auto) 70.8 (45-73) % Lymph % (Auto) 16.8 L (20-40) % [place] % (Auto) 10.8 (2-11) % Eos % (Auto) 0.8 (0-4) % Baso % (Auto) 0.5 (0-2) % Lymph # (Auto) 0.6 L (1.2-4.9) X10*3/uL [place] # (Auto) 0.4 (0.1-1.2) X10*3/uL Eos # (Auto) 0.0 (0.0-0.4) X10*3/uL Baso # (Auto) 0.0 (0.0-0.2) X10*3/uL Abs Immat Gran (auto) 0.01 (0.00-0.03) X10*3/uL Absolute Neuts (auto) 2.6 (2.0-8.3) x10*3/uL Absolute Nucleated RBC 0.000 (0.0-0.012) X10*3/uL Nucleated RBC % (auto) 0.0 (0.0-0.2) /100WBC PT 12.5 (10.0-13.1) SEC INR 1.1 (0.9-1.1) Sodium 134 L (135-145) mmol/L Potassium 4.4 (3.3-5.1) mmol/L Chloride 94 L (96-108) mmol/L Carbon Dioxide 23 (22-29) mmol/L Anion Gap 21 H (12-20) BUN 15 (9-16) mg/dL Creatinine 0.72 (0.5-1.4) mg/dL Estim Creat Clear Calc 139.1 Estimated GFR > 60 Random Glucose 87 (60-115) mg/dL Lactic Acid (0.5-2.0) mmol/L Lactic Acid F/U @ 2Hr (0.5-2.0) mmol/L Calcium 11.0 H D (8.4-10.2) mg/dL Total Bilirubin 3.6 H (0.0-1.0) mg/dL AST 76 H (5-37) U/L ALT 75 H (0-40) U/L Alkaline Phosphatase 873 H (39-117) U/L Total Protein 9.2 H (6.5-8.0) g/dL Albumin 4.5 (3.5-5.0) g/dL Influenza Type A (PCR) (Negative) Influenza Type B (PCR) (Negative) RSV RNA Qual (PCR) (Negative) SARS-CoV-2 RNA (RT-PCR) (Negative) S. pyogenes GrpA STEFAN (Negative) 10/06/22 Range/Units 14:38 WBC (4.8-10.8) X10*3/uL RBC (4.60-5.80) X10*6/uL Hgb (14.0-18.0) g/dl Hct (42.0-52.0) % MCV (80.0-98.0) fL MCH (27.0-33.0) pg MCHC (31.0-36.0) g/dl RDW (11.0-16.0) % Plt Count (160-400) X10*3/uL MPV (9.4-12.4) fL Immature Gran % (Auto) (0.0-0.4) % Neut % (Auto) (45-73) % Lymph % (Auto) (20-40) % [place] % (Auto) (2-11) % Eos % (Auto) (0-4) % Baso % (Auto) (0-2) % Lymph # (Auto) (1.2-4.9) X10*3/uL [place] # (Auto) (0.1-1.2) X10*3/uL Eos # (Auto) (0.0-0.4) X10*3/uL Baso # (Auto) (0.0-0.2) X10*3/uL Abs Immat Gran (auto) (0.00-0.03) X10*3/uL Absolute Neuts (auto) (2.0-8.3) x10*3/uL Absolute Nucleated RBC (0.0-0.012) X10*3/uL Nucleated RBC % (auto) (0.0-0.2) /100WBC PT (10.0-13.1) SEC INR (0.9-1.1) Sodium (135-145) mmol/L Potassium (3.3-5.1) mmol/L Chloride (96-108) mmol/L Carbon Dioxide (22-29) mmol/L Anion Gap (12-20) BUN (9-16) mg/dL Creatinine (0.5-1.4) mg/dL Estim Creat Clear Calc Estimated GFR Random Glucose (60-115) mg/dL Lactic Acid (0.5-2.0) mmol/L Lactic Acid F/U @ 2Hr 2.2 H* (0.5-2.0) mmol/L Calcium (8.4-10.2) mg/dL Total Bilirubin (0.0-1.0) mg/dL AST (5-37) U/L ALT (0-40) U/L Alkaline Phosphatase (39-117) U/L Total Protein (6.5-8.0) g/dL Albumin (3.5-5.0) g/dL Influenza Type A (PCR) (Negative) Influenza Type B (PCR) (Negative) RSV RNA Qual (PCR) (Negative) SARS-CoV-2 RNA (RT-PCR) (Negative) S. pyogenes GrpA STEFAN (Negative) Independent Interpretation I performed an independent interpretation of an: CT Scan Interpretation: ct scan reviewed - impressive hepatomegaly w/ metastatic lesions, ?bleeding. splenomegaly, no free air, agree w/ radiology read Radiology Impression Discussion of test interpretation with radiology: I discussed test interpretation with the radiologist and I have reviewed the radiologist's reading. Radiologist Impression: CT/CT abdomen pelvis w IV con IMPRESSION: Irregular soft tissue mass centered at the gastric body with both intraluminal and extraluminal components measuring 4.1 x 4.7 x 4.8 cm. Diagnostic considerations include gastrointestinal stromal tumor and gastric carcinoma. ? Extensive hepatic metastatic disease and hepatic enlargement progressed from prior study with marked progressive periportal lymphadenopathy. Many of the hepatic lesions demonstrate central necrosis. Hemorrhagic component cannot be excluded. ? Splenomegaly. ? Small ascites. Independent Historian Clinical information obtained from an independent historian. History obtained from or confirmed by: Other (oncologist at [facility] Dr. Higuera) External Record Review External record reviewed: Outpatient record, Prior outpatient labs and Prior outpatient radiology Prescription Management I considered prescription management with: Pain Medication and Antibiotic Chronic Conditions Patient?s care impacted by: Other (gastric and liver cancers) Social Determinants Patient?s care significantly limited by Social Determinants of Health including: Other Social Determinant of Health (recently out of [place] [facility], polysubstance abuse) Critical Care Time Critical Care Time Critical Care Time: Yes Total Critical Care Time: 65 Attestation: I have personally provided critical care time exclusive of time spent on separately billable procedures. Time includes review of lab data, radiology results, discussion with consultants, and monitoring for potential decompensation. Intervention performed as documented. Discharge Plan Discharge Clinical Impression: Metastatic cancer, Intractable abdominal pain, Abdominal rigidity Patient Disposition: [facility] Transfer Details: [facility] Prescriptions: No Action acetaminophen 325 mg tablet 2 tab PO QID PRN (Reason: pain) sennosides-docusate sodium [Senexon-S] 8.6-50 mg tablet 2 tab PO BEDTIME PRN (Reason: constipation) omeprazole 40 mg capsule,delayed release(DR/EC) 1 cap PO DAILY@0630 oxycodone 15 mg tablet 1 tab PO Q6H PRN (Reason: pain) trazodone 100 mg tablet 2 tab PO BEDTIME amlodipine 10 mg tablet 1 tab PO DAILY hydroxyzine HCl 25 mg tablet 25 mg PO BID@0900,1200 hydroxyzine HCl 25 mg tablet 50 mg PO BEDTIME sertraline 50 mg tablet 1 tab PO DAILY sunitinib malate 37.5 mg capsule 37.5 mg PO DAILY
[2022-10-06 11:20] VITALS: BP 148/99; PULSE 113; RESP 20; TEMP 36.8; O2SAT 96; BMI 22.1
[2022-10-06 12:11] LABS: INTERNATIONAL NORM RATIO 1.1 (0.9-1.1); Prothrombin Time 12.5 SEC (10.0-13.1)
[2022-10-06 12:11] LABS: IDNOW Serial# 08D9AD1C
[2022-10-06 12:11] LABS: MANUAL DIFF FLAG NO
[2022-10-06 12:12] LABS: Basophils Percent Auto 0.5 % (0-2); Eosinophils Percent Auto 0.8 % (0-4); Hematocrit 34.6 % (42.0-52.0); Hemoglobin 10.8 g/dl (14.0-18.0); Imm Gran Abs Auto 0.01 X10*3/uL (0.00-0.03); Imm Gran Pct Auto 0.3 % (0.0-0.4); Lymphocytes Absolute Auto 0.6 X10*3/uL (1.2-4.9); Lymphocytes Percent Auto 16.8 % (20-40); Mean Corpuscular HGB Conc 31.2 g/dl (31.0-36.0); Mean Corpuscular Hemoglobin 27.1 pg (27.0-33.0); Mean Corpuscular Volume 86.9 fL (80.0-98.0); Monocytes Absolute Auto 0.4 X10*3/uL (0.1-1.2); Monocytes Percent Auto 10.8 % (2-11); Neutrophils Absolute Auto 2.6 x10*3/uL (2.0-8.3); Neutrophils Percent Auto 70.8 % (45-73); Platelet Count 180 X10*3/uL (160-400); Red Blood Count 3.98 X10*6/uL (4.60-5.80); White Blood Count 3.7 X10*3/uL (4.8-10.8)
[2022-10-06 12:12] LABS: Strep A Nucleic Acid Negative (Negative)
[2022-10-06 12:17] LABS: Lactic Acid 2.5 mmol/L (0.5-2.0)
[2022-10-06 12:22] LABS: Alanine Aminotransferase 75 U/L (0-40); Albumin Level 4.5 g/dL (3.5-5.0); Alkaline Phosphatase 873 U/L (39-117); Anion Gap 21 (12-20); Aspartate Amino Transferase 76 U/L (5-37); Bilirubin Total 3.6 mg/dL (0.0-1.0); Blood Urea Nitrogen 15 mg/dL (9-16); Carbon Dioxide 23 mmol/L (22-29); Chloride 94 mmol/L (96-108); Creatinine Clr Calc Pharmacy 139.1; Estimated Glomerular Filt Rate > 60; Glucose Random 87 mg/dL (60-115); Potassium 4.4 mmol/L (3.3-5.1); Sodium 134 mmol/L (135-145); Total Protein 9.2 g/dL (6.5-8.0)
[2022-10-06 12:43] LABS: Influenza A PCR NEGATIVE (Negative); Influenza B PCR NEGATIVE (Negative); Resp Syncy Virus RNA Qual PCR NEGATIVE (Negative); SARS COV2 PCR INHOUSE NEGATIVE (Negative)
[2022-10-06] MEDS: 0.9 % Sodium Chloride 1,000 ML 999 ML IV (12:43)
[2022-10-06] MEDS: HYDROmorphone HCl 1 MG/ML SYRINGE IVPUSH ×2 (12:43→15:01)
[2022-10-06] MEDS: Piperacillin Sodium/Tazobactam 3.375 GM in 0.9 % Sodium Chloride 50 ML IV (13:01)
[2022-10-06] MEDS: iohexoL 350 MG/ML 100 ML INFUS..BTL 85 ML IV (13:05)
[2022-10-06 13:24] VITALS: BP 121/86; PULSE 100; RESP 16; TEMP 36.8; O2SAT 96
[2022-10-06 14:02] LABS: Reflex Lactate? Lactic Acid Added
[2022-10-06 14:53] VITALS: BP 126/86; PULSE 100; RESP 20; TEMP 37.3; O2SAT 94
[2022-10-06 15:01] VITALS: RESP 19
[2022-10-06 15:09] LABS: ~Lactic Acid-LAB USE ONLY 2.2 mmol/L (0.5-2.0)
--- NOTE | 2022-10-06 15:22 | P.HPHOSP_ITS ---
History of Present Illness 3 weeks ago started with severe pain to abdomen, sore throat and felt feverish has been laying down and trying to reieve the pain Review of Systems Review of Systems: Denies any recent fever chills or decrease in appetite respiratory denies any shortness of breath coverage production cardiovascular no chest pain gastrointestinal see HPI genitourinary denies any dysuria frequency or hematuria musculoskeletal denies any joint pain or swelling neuropsych denies any weakness or seizures all other systems reviewed are negative [facility] Medical History Cancer of stomach Liver cancer Social History Alcohol intake: never Patient Tobacco Use Status: Current everyday Tobacco user Substance Use Type: Marijuana Advance Directives: No Meds Allergies Allergy/AdvReac Type Severity Reaction Status Date / Time No Known Allergies Allergy Unverified 10/06/22 11:19 [No Known Allergies*] Home Medications Medication Instructions Recorded Confirmed Last Taken Type acetaminophen 325 mg tablet 2 tab PO QID PRN pain 06/03/21 06/03/21 Unknown History amlodipine 10 mg tablet 1 tab PO DAILY 06/03/21 06/03/21 Unknown History hydroxyzine HCl 25 mg tablet 25 mg PO BID@0900,1200 06/03/21 06/03/21 Unknown History hydroxyzine HCl 25 mg tablet 50 mg PO BEDTIME 06/03/21 06/03/21 Unknown History omeprazole 40 mg capsule,delayed 1 cap PO DAILY@0630 06/03/21 06/03/21 Unknown History release oxycodone 15 mg tablet 1 tab PO Q6H PRN pain 06/03/21 06/03/21 Unknown History sennosides 8.6 mg-docusate sodium 2 tab PO BEDTIME PRN constipation 06/03/21 06/03/21 Unknown History 50 mg tablet (Senexon-S) sertraline 50 mg tablet 1 tab PO DAILY 06/03/21 06/03/21 Unknown History sunitinib malate 37.5 mg capsule 37.5 mg PO DAILY 06/03/21 Unknown History trazodone 100 mg tablet 2 tab PO BEDTIME 06/03/21 06/03/21 Unknown History Physical Exam Vital Signs and Narrative: Vital Signs: Last Vital Signs Temp 99.2 F 10/06/22 14:53 Pulse 100 07/12/23 14:53 Resp 19 10/06/22 15:01 BP 126/86 10/06/22 14:53 Pulse Ox 94 10/06/22 14:53 O2 Del Method Room Air 10/06/22 14:53 BMI result Body Mass Index 22.1 Appearing in no acute distress head is normocephalic atraumatic eyes pupils are PERRLA sclera is anicteric mouth throat mucous membranes are intact and moist neck is supple no lymphadenopathy, no JVD noted lung sounds are clear to auscultation heart regular rate rhythm, clear S1, S2 positive bowel sounds, abdomen is soft, nontender neuro patient is alert x3, no focal deficits Results Labs 10/06/22 11:59 10/06/22 11:46 Labs: Laboratory Results - last 24 hr 10/06/22 10/06/22 10/06/22 11:45 11:45 11:45 MCV MCH MCHC RDW Plt Count MPV Immature Gran % (Auto) Neut % (Auto) Lymph % (Auto) [place] % (Auto) Eos % (Auto) Baso % (Auto) Lymph # (Auto) [place] # (Auto) Eos # (Auto) Baso # (Auto) Abs Immat Gran (auto) Absolute Neuts (auto) Absolute Nucleated RBC Nucleated RBC % (auto) PT INR Anion Gap Estim Creat Clear Calc Estimated GFR Random Glucose Lactic Acid 2.5 H* Lactic Acid F/U @ 2Hr Calcium Total Bilirubin AST ALT Alkaline Phosphatase Total Protein Albumin Influenza Type A (PCR) NEGATIVE Influenza Type B (PCR) NEGATIVE RSV RNA Qual (PCR) NEGATIVE SARS-CoV-2 RNA (RT-PCR) NEGATIVE S. pyogenes GrpA STEFAN Negative 10/06/22 10/06/22 10/06/22 11:46 11:46 11:59 MCV 86.9 MCH 27.1 MCHC 31.2 RDW 20.0 H Plt Count 180 MPV 11.0 Immature Gran % (Auto) 0.3 Neut % (Auto) 70.8 Lymph % (Auto) 16.8 L [place] % (Auto) 10.8 Eos % (Auto) 0.8 Baso % (Auto) 0.5 Lymph # (Auto) 0.6 L [place] # (Auto) 0.4 Eos # (Auto) 0.0 Baso # (Auto) 0.0 Abs Immat Gran (auto) 0.01 Absolute Neuts (auto) 2.6 Absolute Nucleated RBC 0.000 Nucleated RBC % (auto) 0.0 PT 12.5 INR 1.1 Anion Gap 21 H Estim Creat Clear Calc 139.1 Estimated GFR > 60 Random Glucose 87 Lactic Acid Lactic Acid F/U @ 2Hr Calcium 11.0 H D Total Bilirubin 3.6 H AST 76 H ALT 75 H Alkaline Phosphatase 873 H Total Protein 9.2 H Albumin 4.5 Influenza Type A (PCR) Influenza Type B (PCR) RSV RNA Qual (PCR) SARS-CoV-2 RNA (RT-PCR) S. pyogenes GrpA STEFAN 10/06/22 14:38 MCV MCH MCHC RDW Plt Count MPV Immature Gran % (Auto) Neut % (Auto) Lymph % (Auto) [place] % (Auto) Eos % (Auto) Baso % (Auto) Lymph # (Auto) [place] # (Auto) Eos # (Auto) Baso # (Auto) Abs Immat Gran (auto) Absolute Neuts (auto) Absolute Nucleated RBC Nucleated RBC % (auto) PT INR Anion Gap Estim Creat Clear Calc Estimated GFR Random Glucose Lactic Acid Lactic Acid F/U @ 2Hr 2.2 H* Calcium Total Bilirubin AST ALT Alkaline Phosphatase Total Protein Albumin Influenza Type A (PCR) Influenza Type B (PCR) RSV RNA Qual (PCR) SARS-CoV-2 RNA (RT-PCR) S. pyogenes GrpA STEFNA Imaging Radiologist's Impressions: Impressions Abdomen/Pelvis CT 10/06/22 13:03 IMPRESSION: Irregular soft tissue mass centered at the gastric body with both intraluminal and extraluminal components measuring 4.1 x 4.7 x 4.8 cm. Diagnostic considerations include gastrointestinal stromal tumor and gastric carcinoma. Extensive hepatic metastatic disease and hepatic enlargement progressed from prior study with marked progressive periportal lymphadenopathy. Many of the hepatic lesions demonstrate central necrosis. Hemorrhagic component cannot be excluded. Splenomegaly. Small ascites. Findings were reviewed and discussed with LOUISA Olivares at 2:08 PM on 10/06/2022. Assessment and Plan Time Spent With Patient Time: Total time managing care of this patient today ____ minutes.
[2022-10-06 16:41] LABS: Reflex Lactate? 2 Y
[2022-10-06 17:04] VITALS: BP 125/88; PULSE 107; RESP 20; TEMP 37.2; O2SAT 96
--- NOTE | 2022-10-06 17:15 | PHA.MEDREC ---
Pharmacy Consult ? Medication Reconciliation Pharmacy has completed the medication reconciliation. Spoke with patient. He said he stopped taking his medications for depression (sertraline and buspirone). Him and his sister report that the Stivarga was prescribed 3 tablets once a week and will be increased to 4 tablets next week however, the claim history suggests its 3 tablets every day and UpToDate also suggests daily administration for all indications. He reports last taking it on Tuesday.
[2022-10-06 17:39] LABS: Appearance Urine Clear; Color Urine Dark Yellow; Glucose Urine UA Negative (Negative); Leukocyte Esterase Urine Negative (Negative); Nitrite Urine Negative (Negative); PH 6.5 (5.0-9.0); Specific Gravity - Urine >= 1.030 (1.005-1.025); Urine Blood Negative (Negative); Urine Ketones 40 mg/dL (Negative); Urine Protein Trace mg/dL (Neg-Trace)
== END 2022-10-06 17:46 | disposition short-term general hospital (02) ==
PROVIDERS: Registered Nurse Emergency; Emergency Provider Emergency Medicine; PCP Internal Medicine
DX: C16.9 Malignant neoplasm of stomach, unspecified (principal); C78.7 Secondary malignant neoplasm of liver and intrahepatic bile duct; R10.0 Acute abdomen; R00.0 Tachycardia, unspecified; Z20.822 Contact with and (suspected) exposure to COVID-19; Z20.828 Contact with and (suspected) exposure to other viral communicable diseases; G89.4 Chronic pain syndrome; F17.200 Nicotine dependence, unspecified, uncomplicated; Z92.3 Personal history of irradiation; Z92.21 Personal history of antineoplastic chemotherapy; Z79.891 Long term (current) use of opiate analgesic; Z79.899 Other long term (current) drug therapy
CPT/HCPCS: 0241U; 36415; 74177; 80053; 81003; 83605; 85025; 85610; 87040; 87651; 96361; 96374; 96375; 96376; 99285; J1170; J2543; Q9967